=== PATIENT | female | born 1935 | race African-American/Black ===

== ENCOUNTER 2017-08-01 06:46 | Day surgery (SDC) | payer MEDICARE, BC ==
[2017-08-01] VITALS (14 sets, daily range): BP systolic 130–172; BP diastolic 62–80
[~2017-08-01] VITALS: Ht 160 cm; Wt 69.9 kg
[~2017-08-01 06:46] MED LIST: ACTOS15 MG PO; ADALAT CC90 MG PO; ALBUTEROL SULF8.5 GM INH; ALIGN4 M1 PO; ASPIRIN81 M1 PO; ATENOLOL100 MG PO; AUGMENTIN 875-1 EAC1 ORAL; BUDEPRION SR150 MG PO; CRESTOR10 M1 PO; FLAGYL500 MG ORAL; FOSAMAX70 MG/75 M PO; JANUVIA100 MG PO; METFORMIN HCL500 MG PO; NATEGLINIDE120 MG PO; PANTOPRAZOLE SO40 MG ORAL; SIMVASTATIN20 MG ORAL; [UNRECOGNIZED DRUG - OTHER]; ceFAZolin 1gm in D5W 55ml IVP ONE; celeBREX 200mg Cap **SURGERY PATIENTS ONLY ORAL ONE; oxyCONTIN 20mg tab ORAL ONE
[2017-08-01] MEDS ORDERED: Lidocaine 1% MPF 10mg/ml 5ml ONE (06:47)
[2017-08-01] MEDS ORDERED: Sodium Chloride 10ml vial INJ ONE (06:47)
[2017-08-01] MEDS ORDERED: Propofol 200mg/20ml IV ONE (06:47)
[2017-08-01] MEDS ORDERED: NS Irrig 4000ml IRRIG ONE ×2 (06:47→10:28)
[2017-08-01] MEDS ORDERED: Midazolam 2mg/2ml Inj ONE (06:47)
--- NOTE | 2017-08-01 06:55 | Pre-Procedure Note/Attestation ---
Pre-Procedure Note/Attestation Complete Prior to Procedure Planned Procedure: right Procedure Narrative: rt shoulder scope, resection of loose fragments Indications for Procedure Pre-Operative Diagnosis: rt shoulder loose fragments Attestation I attest that I discussed the nature of the procedure; its benefits; risks and complications; and alternatives (and the risks and benefits of such alternatives ), prior to the procedure, with the patient (or the patient's legal customer assistance representative). I attest that, if there was a reasonable possibility of needing a blood transfusion, the patient (or the patient's legal customer assistance representative) was given the [facility] standardized written summary, pursuant to the Rosales Magen Blood Safety Act ([place] Health and Safety Code # 1645, as amended). I attest that I re-evaluated the patient just prior to the surgery and that there has been no change in the patient's H&P, except as documented below:NONE HOLDEN ANGULO Aug 01, 2017 06:55
[2017-08-01] MEDS ORDERED: Ropivacaine 5mg/ml Vial 30ml INJ ONE (07:05)
[2017-08-01] MEDS ORDERED: celeBREX 200mg Cap **SURGERY PATIENTS ONLY ORAL ONE (07:49)
[2017-08-01] MEDS ORDERED: LR 1000ml 1,000 ML IVLG SCH (08:32)
--- NOTE | 2017-08-01 08:32 | Pre-op HX & Phy Repo 2 SIG ---
DATE OF ADMISSION: 08/01/2017 ATTENDING PHYSICIANS: 1. Emerson Lee M.D. 2. Orestes Pedroza M.D. REASON FOR ADMISSION: Elective right shoulder arthroscopy. History of Present Illness: The patient is a 81-year-old female with a history of multiple medical problems, who presents with right shoulder pain and difficulty in range of motion, who has been diagnosed with a complete rotator cuff tear of the right shoulder and is now scheduled for right shoulder arthroscopy and repair of rotator cuff . The patient has failed medical management and therefore has been recommended to undergo surgical intervention. The patient has been evaluated by Dr. Pedroza and advise to proceed with surgery. The patient denies history of coronary artery disease, chest pain, or shortness of breath. She does have some ankle swelling and has evidence of peripheral vascular disease with right lower extremity claudication. In view of her symptoms as well as in preparation for the surgery, the patient underwent an exercise echo study. It was limited by claudication, but there was no evidence of ischemia by clinical observation or echocardiography. The wall motion was normal, and ejection fraction was 55% to 60% at rest. Post exercise, ejection fraction was 70%. EKG showed ischemic changes; however, echocardiography did not show any evidence of ischemia. PAST MEDICAL HISTORY: 1. Diabetes. 2. Hypercholesterolemia. 3. Hypertension. 4. Osteoporosis. 5. History of gastroesophageal reflux disease. 6. History of smoking, currently stopped. Medications: The patient is on aspirin 81 mg daily, which is on hold; Januvia 100 mg daily; metformin 500 mg t.i.d.; nateglinide 120 mg t.i.d.; nifedipine ER 90 mg daily, [place] 5/325 mg p.r.n., pantoprazole 40 mg daily, pentoxifylline 400 mg tablets b.i.d., pioglitazone 15 mg daily, and simvastatin 20 mg daily. Review Of Systems: Significant for claudication, especially involving the right shoulder and bilateral hips. PHYSICAL EXAMINATION: General: The patient is alert, oriented, pleasant female, in no apparent distress. Vital Signs: Blood pressure was 160/80, temperature afebrile, heart rate 74. HEENT: Unremarkable. NECK: Supple. LUNGS: . Cardiac: S1 and S2 are normal without S3 or S4. Jugular venous pressure is normal. Abdomen: Soft and nontender without hepatosplenomegaly. Bowel sounds are present. Extremities: Without cyanosis, clubbing, or edema. Right shoulder has decreased range of motion. Laboratory Data: Reviewed and attached. PT and PTT are within normal limits. Electrolytes are within normal limits. Liver panel is within normal limits. EKG shows normal sinus rhythm with nonspecific ST-T changes in the inferolateral leads. IMPRESSION: 1. Rotator cuff tear of the right shoulder. 2. Hypertension. 3. History of smoking. 4. Diabetes. 5. History of peripheral vascular disease. 6. History of diverticulitis of the colon. Plan and Suggestion: The patient is stable to proceed with surgery as planned. She was advised to stop taking aspirin in preparation for the surgery. Her cardiac did not show evidence of any significant coronary artery disease or ischemia. The patient will be continued on the oral medications . Dr. Pedroza, thank you for allowing me to participate in the care of this patient. I am happy to follow with you as necessary. The patient is scheduled for surgery in the morning. Emerson Lee M.D. DR: JESSIE JOB#: [id number] CC: Orestes Pedroza M.D.; Fax#: [phone]
--- NOTE | 2017-08-01 08:32 | Anethesia Preoperative Eval ---
Anesthesia Pre-op PMH/ROS General Date of Evaluation: Aug 01, 2017 Time of Evaluation: 09:49 Anesthesiologist: Jed ASA Score: ASA 3 Mallampati Score Class I : Soft palate, uvula, fauces, pillars visible Class II: Soft palate, uvula, fauces visible Class III: Soft palate, base of uvula visible Class IV: Only hard plate visible Mallampati Classification: Class II Surgeon: Kasia Diagnosis: R Shoulder Pain Surgical Procedure: R Shoulder Arthroscopy Anesthesia History: none Social History: current smoker Family History: no anesthesia problems Allergies: Coded Allergies: FOSINOPRIL (Verified Allergy, Severe, TONGUE SWOLLEN, 07/31/17) EVELIO INHIBITORS (Verified Allergy, Mild, 01/31/11) Uncoded Allergies: ANY MEDICATION ENDING IN "PRIL" (Allergy, Unknown, 08/05/15) Medications: see eMAR Past Medical History Cardiovascular: Reports: HTN, CAD Gastrointestinal/Genitourinary: Reports: GERD, other - Diverticulitis Endocrine: Reports: DM HEENT: Reports: cataract (L), cataract (R) PSxH Narrative: Bilateral Bunionectomy, Appendectomy Anesthesia Pre-op Phys. Exam Physician Exam Last Vital Signs Date Time Temp Pulse Resp B/P (MAP) Pulse Ox O2 Delivery O2 Flow Rate FiO2 08/01/17 07:24 98.1 84 20 159/69 99 Room Air Constitutional: NAD Neurologic: CN 2-12 intact Cardiovascular: RRR Respiratory: CTA Gastrointestinal: S/NT/ND Airway Exam Mallampati Score: Class II MO: limited ROM: limited Teeth: missing, intact Anesthesia Pre-op A/P Risk Assessment & Plan Assessment: ASA 3 Plan: GA, R Supraclavicular Block Status Change Before Surgery: No Pre-Antibiotics Dru Gram Ancef Iv Given Within 1 Hr of Incision: Yes Time Given: 10:01 Hilario Adkins MD Aug 01, 2017 08:32
--- NOTE | 2017-08-01 08:40 | Immediate Post-Op Evaluation ---
Immediate Post-Op Evalulation Immediate Post-Op Evalulation Procedure: R Shoulder Arthroscopy Date of Evaluation: Aug 01, 2017 Time of Evaluation: 12:04 IV Fluids: 900 LR Blood Products: 0 Estimated Blood Loss: 20 Urinary Output: 0 Blood Pressure Systolic: 166 Blood Pressure Diastolic: 81 Pulse Rate: 83 Respiratory Rate: 16 O2 Sat by Pulse Oximetry: 98 Temperature (Fahrenheit): 98.3 Pain Score (1-10): 1 Nausea: No Vomiting: No Complications 0 Patient Status: awake, reacts, patent, none Hydration Status: adequate Dru Gram Ancef IV Given Within 1 Hr of Incision: Yes Time Given: 10:01 Hilario Adkins MD Aug 01, 2017 08:40
[2017-08-01] MEDS ORDERED: Meperidine 25mg/0.5ml Inj (FOR RIGORS ONLY) IV PRN (08:45)
[2017-08-01] MEDS ORDERED: Ketorolac 60mg Inj IV PRN (08:45)
[2017-08-01] MEDS ORDERED: Norco 5mg/325mg tab ORAL PRN ×3 (08:45→10:15)
[2017-08-01] MEDS ORDERED: Midazolam 2mg/2ml Inj IVP PRN (08:45)
[2017-08-01] MEDS ORDERED: fentaNYL 100 mcg/2 mL IV PRN (08:45)
[2017-08-01] MEDS ORDERED: Ketorolac 30mg Inj IV PRN (08:45)
[2017-08-01] MEDS ORDERED: DiphenhydrAMINE 50mg/ml Inj IVP PRN (08:45)
[2017-08-01] MEDS ORDERED: oxyCODONE HCL/Acetaminophen 5/325mg ORAL PRN (08:45)
[2017-08-01] MEDS ORDERED: Hydromorphone 0.5mg/0.5ml inj IVP PRN (08:45)
[2017-08-01] MEDS ORDERED: LORazepam Inj 2mg/ml 1ml IV PRN (08:45)
[2017-08-01] MEDS ORDERED: Norco 7.5mg/325mg tab ORAL PRN (08:45)
[2017-08-01] MEDS ORDERED: Metoclopramide 10mg/2ml Inj IVP PRN (08:45)
[2017-08-01] MEDS ORDERED: Atropine Inj 1mg/10ml Syr IV PRN (08:45)
[2017-08-01] MEDS ORDERED: Tylenol #3 tab (300mg/30mg) ORAL PRN (09:45)
[2017-08-01] MEDS ORDERED: Ketamine 500mg Inj ONE (10:00)
[2017-08-01] MEDS ORDERED: D5 1/2NS 1,000 ML IV SCH (11:00)
--- NOTE | 2017-08-01 11:44 | Brief Operative Note ---
Immediate Post Operative Note Operative Note Chief Complaint: rt shoulder pain Pre-op Diagnosis: rt shoulder loose fragments Procedure: rt shoulder scope, sad, mini cherise resection of loose fragment, rtc repair Post-op Diagnosis: rt shoulder rtc tear Surgeon: md deo Delinquent Tax Collector: joe medina Anesthesiologist: md alistair Specimen: yes Complications: none Condition: stable Fluids: ns Estimated Blood Loss: minimal Drains: none Implant(s) used?: Yes - biomet MARY MEDINA Aug 01, 2017 11:44
--- NOTE | 2017-08-01 23:00 | Operative Note - Dictated ---
DATE OF OPERATION: 08/01/2017 PREOPERATIVE DIAGNOSES: 1. Right shoulder arthritis. 2. Right shoulder loose fragment. 3. Right shoulder possible partial-thickness tear of rotator cuff. POSTOPERATIVE DIAGNOSES: 1. Right shoulder diffuse humeral head arthritis involving 70% of humeral head, grade 3/grade 4 with central and anterior glenoid chondral damage, grade 3/grade 4. 2. Multiple loose fragment in right shoulder of cartilage measuring 7-10 mm. 3. Right shoulder degenerative anterior and superior as well as posterior labral tearing. 4. Right shoulder subacromial bursitis. 5. Right shoulder high-grade partial-thickness articular-sided rotator cuff tear measuring 90% of rotator cuff in the supraspinatus measuring 1 cm. PROCEDURE: 1. Right shoulder arthroscopy and extensive intra-articular shaving. 2. Right shoulder resection of multiple loose fragment in the glenohumeral joint measuring 5-7 mm of cartilage. 3. Right shoulder debridement of the anterior, superior, and posterior labrum. 4. Right shoulder subacromial bursoscopy, bursectomy, and subacromial decompression. 5. Right shoulder mini-Jolly procedure (resection of inferior 30% of the distended clavicle for coplaning). 6. Right shoulder arthroscopic rotator cuff repair using single Biomet 2.9 mm JuggerKnot anchor. SURGEON: Orestes Hughes M.D. ANIMAL BREEDER: Gretchen Harmon PA-C. ANESTHESIOLOGIST: Dr. Hilario Adkins M.D. Anesthesia: LMA anesthesia combined with interscalene block for postoperative pain management. ESTIMATED BLOOD LOSS: Minimal. COMPLICATIONS: None. Surgical Indication: The patient is a 81-year-old female who sustained the above injury to her shoulder. The patient was treated non-operative initially, but this did not alleviate the patients symptoms. Therefore, after discussing all non-surgical and surgical options, and discussing all foreseeable risk and benefits of surgery, the patient opted for surgical treatment as described above. Patient Positioning: The patient was brought to the operating room table and was placed on the operating room table. All pressure points were well padded. General anesthesia was induced and patient was then placed in the lateral decubitus position. All pressure points were well padded again and an axillary roll was placed. Patient shoulder was then prepped and draped in the usual sterile fashion. Time out was performed and the appropriate preoperative antibiotic was given by the anesthesiologist. Examination Of Shoulder Under Anesthesia: The shoulder was examined under anesthesia with all muscles well relaxed. The shoulder was forward flexed, abducted and was placed through full range of external and internal rotation. The anterior, posterior, and inferior stability of the shoulder was checked. The exam revealed no evidence of adhesive capsulitis and no evidence of instability. Portal Placement: The posterior portal was established 2 cm inferior and 1 cm medial to the edge of the posterior acromion. A 1 cm skin incision was made using an eleven blade and using the blunt obturator, the cannula was gently placed through the capsule. The midglenoid portal was established just lateral to the coracoid process under direct visualization. Direction of the cannula was first established using a spinal needle, and subsequently, the cannula was placed through the capsule with a blunt obturator. Diagnostic Arthroscopy: The biceps tendon was probed and pulled through the joint for visualization. It appeared normal. The biceps anchor was palpated with a probe and was visualized. There was extensive degenerative tearing of the superior as well as anterior as well as posterior labrum. There was no detachment of the biceps, however. The posterior labrum and axillary recess was visualized. There was some loose fragment of cartilage 5-7 mm in the axillary recess and also in the subscapularis recess. There was diffuse chondral damage of the glenoid centrally as well as anteriorly measuring grade 3 and grade 4 chondromalacia. The articular surface of the rotator cuff was visualized and probed next. There was high-grade articular-sided rotator cuff tear in the supraspinatus measuring 90% of the rotator cuff. There were few fibers on the bursal side that were intact. This was in the anterior 1 cm of the rotator cuff. The Humeral head articular surface was then visualized. There was diffuse chondral damage of the humeral head involving 70% of humeral head with grade 3/grade 4 chondromalacia. Next the anterior labrum, middle gleno-humeral ligament, subscapularis tendon, and the anterior inferior gleno-humeral ligament were evaluated. There was some degenerative anterior labral tearing, however, the subscapularis and anterior and inferior glenohumeral ligaments were intact. At this point, the scope was moved to the midglenoid portal and the posterior structures including the posterior labrum, posterior capsule and posterior cuff were visualized. There was some degenerative labral tearing, otherwise the capsule and posterior cups were intact. There were some loose fragments in the subscapular recess measuring 7-10 mm. These loose fragments were consistent with chondral pieces that flake off of the humeral head. The middle and anterior inferior glenohumeral ligament was visualized. These structures were completely normal. Operative Debridements And Repair: Care was given to all partial-thickness tears and frayed structures in the shoulder joint. The frayed rotator cuff and labrum was debrided using a shaver initially through the anterior portal and subsequently through the posterior portal to complete the debridement. This allowed for smooth debridement of all affected structures and all loose fragments were removed. Diagnostic Bursoscopy and Subacromial Decompression: The subacromial bursa was entered from the posterior portal. The anterior portal was established under the CA ligament using a switching stick. Subacromial arthroscopy was initiated. There was extensive bursitis and thickened and inflamed bursa tissue present. The CA ligament appeared to be scuffed and frayed. The shaver was placed through the anterior cannula and debridement of the hypertrophic bursa tissue was accomplished. Once visualization was adequate, a lateral portal was established using a blunt trochar in the mid portion of the acromion bone in the anterior-posterior direction and approximately 2 cm lateral to the lateral edge of the acromion. Using combination of shaver and electrocautery the CA ligament was released from the undersurface of the acromion and a complete bursectomy was accomplished. At this point, a subacromial decompression was performed using a ok initially taking off 5-8 mm of the anterolateral edge of the acromion from the lateral portal and viewing from the posterior portal. Then the lateral border of the undersurface of the acromion was decompressed to the same dept as the anterolateral edge. A posterior trough was then created in the acromion in line with the posterior edge of the clavicle. At this point, the scope was placed in the lateral portal and the subacromial decompression was performed from the posterior portal decompressing the undersurface of the acromion to dept of 5-8 mm. The decompression was performed anterior to the previously marked trough all the way medially to the level of the AC joint. At all times, care was given not to take off too much bone in order to avoid risk of fracture of the acromion. An excellent subacromial decompression was performed in this fashion. At this point, the bursal side of the rotator cuff was examined. All the bursa over the rotator cuff was removed and the rotator cuff was examined with a probe. The arm was placed into external rotation, neutral, and then internal rotation and there was evidence of a few fibers on the bursal side that were intact. These were debrided and there was a full-thickness rotator cuff tear, which could be visualized measuring 1 cm. The scope was then placed in the posterior portal and the subacromial decompression was rechecked to assure there is no area of bone spur that would be still impinging onto the rotator cuff. Evaluation Of Distal Clavicle And Distal Clavicle Resection: Care was given to the distal end of the clavicle. Using electrocautery and dilshad, the distal end of the bursa and soft tissue around the distal end of the clavicle was debrided and cleaned. Care was given not to inflict excessive trauma to the ligaments of the AC joint. The distal end of the clavicle appeared to have an inferior osteophyte extending down well bellow the level of the acromion at the level of the AC joint. This appeared to be impinging onto the supraspinatus muscle belly and the musculotendinous junction of the rotator cuff. A mini-Jolly procedure was performed by using a ok to resect the inferior 30% of the distal end of the clavicle. This decompression allowed space for the inferior structures to slide without impingement. This co-plained the inferior edge of the distal clavicle with the inferior edge of the acromion. The scope was placed in the lateral portal and the rotator cuff was visualized. The rotator cuff revealed a 1 cm non-retracted supraspinatus tear. The rotator cuff foot print adjacent to the articular cartilage of the humeral head was identified. This area was debrided initially using dilshad and subsequently using ok to provide adequate bleeding bony surface to accept the rotator cuff tendon. Attention was given to repair the rotator cuff with as little tension as possible. At this point, an arthroscopic punch was used to create holes for suture anchor placement at the medial edge of the foot print through separate stab wound incisions and an arthroscopic tap was used to prepare the holes. A one Biomet 2.9 mm JuggerKnot anchor double loaded with two #2 non-absorbable strong sutures was placed in previously prepared holes. Using standard arthroscopic suture passing instruments, the sutures were passed through the edge of rotator cuff with minimal trauma to the cuff tissue. Care was given to obtain large enough bites of the rotator cuff for the sutures to hold well. Once the sutures were passed through the cuff, the repair was secured onto the rotator cuff foot print using SMC sliding knots followed by 3 alternating-post half hitches. This allowed tension free repair of the rotator cuff with excellent stability and water tight closure. The cuff repair security was assured by palpating the repair with a probe. Condition At Discharge From Operating Room: The skin was re-approximated and sterile dressing and sling were applied. All lap counts and instrument counts were correct. Patient tolerated the procedure well without complications and was taken to the recovery room in stable conditions. Orestes Pedroza M.D. DR: WINSTON JOB#: [id number] CC:
[2017-08-02] MEDS ORDERED: Dexamethasone 4mg/ml vial ONE (11:00)
== END 2017-08-01 14:20 | disposition home or self-care (01) ==
LOC: SUR 06:46
DX: M19.011 Primary osteoarthritis, right shoulder (principal); S46.011A Strain of muscle(s) and tendon(s) of the rotator cuff of right shoulder, initial encounter; M75.51 Bursitis of right shoulder; E11.9 Type 2 diabetes mellitus without complications; M81.0 Age-related osteoporosis without current pathological fracture; K21.9 Gastro-esophageal reflux disease without esophagitis; Z79.82 Long term (current) use of aspirin; K57.30 Diverticulosis of large intestine without perforation or abscess without bleeding; Z88.8 Allergy status to other drugs, medicaments and biological substances; F17.200 Nicotine dependence, unspecified, uncomplicated; I65.29 Occlusion and stenosis of unspecified carotid artery; I77.9 Disorder of arteries and arterioles, unspecified; Z90.89 Acquired absence of other organs; I11.9 Hypertensive heart disease without heart failure; E78.5 Hyperlipidemia, unspecified; E78.00 Pure hypercholesterolemia, unspecified; Z79.84 Long term (current) use of oral hypoglycemic drugs; Z98.1 Arthrodesis status; I25.10 Atherosclerotic heart disease of native coronary artery without angina pectoris
CPT/HCPCS: 29824; 29826; 29827; 82962; J0690; J2405; J2704; J3490; 94003; 94150; C1713; J2250

== ENCOUNTER 2017-10-27 08:00 | Outpatient (RCR) | payer MEDICARE, BC ==
[~2017-10-27 08:00] MED LIST changes: -ceFAZolin 1gm in D5W 55ml IVP ONE; -celeBREX 200mg Cap **SURGERY PATIENTS ONLY ORAL ONE; -oxyCONTIN 20mg tab ORAL ONE
== END 2017-10-29 | disposition home or self-care (01) ==
LOC: PTY 08:00
DX: M75.121 Complete rotator cuff tear or rupture of right shoulder, not specified as traumatic (principal); M70.62 Trochanteric bursitis, left hip
CPT/HCPCS: 97035; 97110; 97140; 97162; G0283; G8984; G8985

== ENCOUNTER 2017-11-23 08:30 | Outpatient (RCR) | payer MEDICARE, BC | END 2017-11-29 | disposition home or self-care (01) | LOC: PTY 08:30 | DX: M75.121 Complete rotator cuff tear or rupture of right shoulder, not specified as traumatic (principal); M70.62 Trochanteric bursitis, left hip | CPT/HCPCS: 97035; 97110; 97140; G0283; G8984; G8985 ==

== ENCOUNTER 2017-12-06 07:58 | Outpatient (RCR) | payer MEDICARE, BC, OTHER | END 2017-12-27 | disposition home or self-care (01) | LOC: PTY 07:58 | DX: M75.121 Complete rotator cuff tear or rupture of right shoulder, not specified as traumatic (principal); M70.62 Trochanteric bursitis, left hip | CPT/HCPCS: 97110; 97140; G0283 ==

== ENCOUNTER 2018-01-11 08:15 | Outpatient (RCR) | payer MEDICARE, BC, OTHER | END 2018-01-27 | disposition home or self-care (01) | LOC: PTY 08:15 | DX: M75.121 Complete rotator cuff tear or rupture of right shoulder, not specified as traumatic (principal); M70.62 Trochanteric bursitis, left hip | CPT/HCPCS: 97110; 97140; G0283; G8984; G8985 ==

== ENCOUNTER 2018-02-05 08:20 | Outpatient (RCR) | payer MEDICARE, BC, OTHER | END 2018-02-26 | disposition home or self-care (01) | LOC: PTY 08:20 | DX: M75.121 Complete rotator cuff tear or rupture of right shoulder, not specified as traumatic (principal); M70.62 Trochanteric bursitis, left hip ==

== ENCOUNTER 2018-07-20 08:35 | Outpatient (RCR) | payer BC, MEDICARE | END 2018-07-29 | disposition home or self-care (01) | LOC: PTY 08:35 | DX: M75.21 Bicipital tendinitis, right shoulder (principal); M70.62 Trochanteric bursitis, left hip | CPT/HCPCS: 97014; 97032; 97110; 97140; 97162; G8984; G8985 ==

== ENCOUNTER 2018-08-01 08:15 | Outpatient (RCR) | payer BC, MEDICARE | END 2018-08-29 | disposition home or self-care (01) | LOC: PTY 08:15 | DX: M75.21 Bicipital tendinitis, right shoulder (principal); M70.62 Trochanteric bursitis, left hip ==

== ENCOUNTER 2018-09-07 07:50 | Outpatient (RCR) | payer BC | END 2018-09-28 | disposition home or self-care (01) | LOC: PTY 07:50 | DX: M75.121 Complete rotator cuff tear or rupture of right shoulder, not specified as traumatic (principal); M70.62 Trochanteric bursitis, left hip | CPT/HCPCS: 97110; 97140; G8984; G8985; G8986 ==